=== PATIENT | male | born 1980 | race African-American/Black ===

== ENCOUNTER 2021-07-12 21:13 | Emergency (ER) | payer OTHER ==
--- NOTE | 2021-07-12 22:49 | ED Physician Documentation ---
PD HPI LOWER EXT INJURY - Stated complaint Stated Complaint: LT LEG INJ - Chief complaint Chief Complaint: Ext Problem - History obtained from History obtained from: Patient - History of Present Illness PD HPI LOW EXT INJURY LOCATION: Left, Ankle Type of injury: Fall Where injury occurred: [place] Timing - onset: Enter time (19:00) Timing - details: Abrupt onset Pain level now: 8 Improved by: Rest Worsened by: Moving, Palpating Associated symptoms: No: Weakness, Numbness, Tingling, Swelling, Discolored Similar symptoms before: Has not had sx before Recently seen: Not recently seen - Additional information Additional information: c/o sudden onset left ankle pain at approximately 7 PM tonight when he fell (was pushed) while playing soccer. He was able to bear weight after the fall and continued to play soccer, but the left ankle pain has since rapidly increased in intensity and he is no longer able to bear any weight Review of Systems Skin: denies: Abrasion (s) Musculoskeletal: reports: Joint pain, Joint swelling, Pain with weight bearing. denies: Neck pain, Back pain Neurologic: denies: Focal weakness, Numbness PD PAST MEDICAL HISTORY - Past Medical History Past Medical History: Yes Cardiovascular: Hypertension - Past Surgical History Past Surgical History: No - Present Medications Home Medications: Ambulatory Orders Medication Instructions Recorded Confirmed amLODIPine [Norvasc] 07/12/21 Ibuprofen [Motrin] 600 mg PO Q6H PRN #30 tab 07/13/21 Oxycodone HCl/Acetaminophen 1 - 2 each PO Q6H PRN #14 tablet 07/13/21 [Percocet 5-325 mg Tablet] - Allergies Allergies/Adverse Reactions: Allergies Allergy/AdvReac Type Severity Reaction Status Date / Time No Known Drug Allergies Allergy Verified 07/12/21 21:27 - Social History Does the pt smoke?: No Smoking Status: Never smoker Does the pt drink ETOH?: Yes Does the pt have substance abuse?: No - Immunizations Immunizations are current?: Yes PD ED PE NORMAL - Vitals Vital signs reviewed: Yes - General General: Alert and oriented X 3, Well developed/nourished, Other (appears to be uncomfortable due to pain) - Derm Derm: Normal color, Warm and dry - Extremities Extremities: No deformity - Neuro Neuro: No motor deficit, No sensory deficit PD ED PE EXPANDED - Extremities Extremities: Tenderness, Limited ROM, Swelling, Left ankle, Other (left ankle tenderness, swelling greatest at medial malleolus) Results - Vitals Vitals: Oxygen O2 Source Room air - Rads (name of study) left ankle xrays Radiology: Prelim report reviewed, See rad report Procedures - Splint (location) Lower extremity left Splint applied by: Tech Type of splint: Ankle airsplint Other: Patient tolerated well, No complications, Neurovascular intact, Crutches provided PD MEDICAL DECISION MAKING - ED course Complexity details: reviewed results, re-evaluated patient, considered differential, d/w patient ED course: left ankle pain after falling while playing soccer this evening. No acute findings on plain film xrays, will treat as sprain with air cast splint, crutches, rest, and prescription analgesia I am prescribing a short course of short-acting opioid pain medication for this patient. I have reviewed the patients TEAR DOWN MATCHER and no concerning findings were noted. I have discussed that the opioids are for short term therapy only, and will not be refilled from the ED Departure - Departure Disposition: 01 Home, Self Care Clinical Impression: Ankle sprain Qualifiers: Encounter type: initial encounter Involved ligament of ankle: unspecified ligament Laterality: left Qualified Code(s): S93.402A - Sprain of unspecified ligament of left ankle, initial encounter Condition: Good Instructions: ED Crutch Walking, ED Sprain Ankle Follow-Up: ROSA Valencia [Provider Group] Prescriptions: Ibuprofen [Motrin] 600 mg PO Q6H PRN #30 tab PRN Reason: Pain Oxycodone HCl/Acetaminophen [Percocet 5-325 mg Tablet] 1 - 2 each PO Q6H PRN #14 tablet PRN Reason: pain Comments: There is no evidence of fracture (broken bone(s)) on the xrays. I suspect you have an ankle sprain (which would not show on xrays). Prescriptions for ibuprofen (for mild/moderate pain) and oxycodone/acetaminophen (for moderate/severe pain) have been electronically submitted to the [facility] pharmacy in [place]. I am prescribing a short course of narcotic pain medication for you. These are potentially dangerous and addictive medications that should be used carefully. These medications may constipate you. Take an [id number]-arn-ufuvsiy stool softener (docusate) twice daily with plenty of water while taking these medications. If you go 24 hours without a bowel movement, take [id number] miralax, per package instructions. Do not drink or drive while taking these medications. If you received narcotic or sedating medications while in the emergency department, do not drive for 24 hours. Store this medication in a safe, secure place and out of reach of children. It is a violation of federal law to give or sell this medication to another person or to use in a manner other than prescribed. The ED will not refill narcotic prescriptions, including prescriptions lost or stolen. To dispose of unwanted medications: 1. [facility] at [address] in [place] has a medication drop box. They accept prescription medications (in pill form) Friday through Friday 9:00 a.m. to 5:00 p.m. 2. [facility] [employer] accepts prescription medications (in pill form only) for disposal year round. Call for more information. 3. Contact the [facility] for the next [facility] sponsored prescription drug collection event. , [phone], or [phone]; Forms: Activity restrictions Discharge Date/Time: 07/13/21 00:12
[2021-07-12] MEDS: oxyCODONE 5 MG TABLET PO STA (23:00)
--- NOTE | 2021-07-12 23:32 | XRAY Report ---
PROCEDURE: Ankle 3 View LT INDICATIONS: injury, pain, tenderness TECHNIQUE: 3 views of the ankle were acquired. COMPARISON: None. FINDINGS: Bones: No fractures or dislocations. Ankle mortise is normally aligned. No suspicious bony lesions . Soft tissues: No tibiotalar joint effusion. Achilles tendon appears normal. IMPRESSION: No acute osseous abnormality. Reviewed by: Kashmir Ware MD on 07/12/2021 11:33 PM PDT Approved by: Kashmir Ware MD on 07/12/2021 11:33 PM PDT Station ID: [id number]
--- NOTE | 2021-07-12 23:33 | XRAY Report ---
PROCEDURE: Foot 3 View LT INDICATIONS: injury, pain, tenderness TECHNIQUE: 3 views of the foot were acquired. COMPARISON: Same day left ankle radiographs. FINDINGS: Bones: No fractures or dislocations. No suspicious bony lesions. Soft tissues: No tibiotalar joint effusion. Achilles tendon appears normal. IMPRESSION: No acute osseous abnormality. Reviewed by: Kashmir Ware MD on 07/12/2021 11:35 PM PDT Approved by: Kashmir Ware MD on 07/12/2021 11:35 PM PDT Station ID: [id number]
[2021-07-12 23:47] VITALS: BP 136/77
== END 2021-07-13 00:12 | disposition home or self-care (01) ==
LOC: ED 21:13
DX: S93.402A Sprain of unspecified ligament of left ankle, initial encounter (principal); W03.XXXA Other fall on same level due to collision with another person, initial encounter; Y93.66 Activity, soccer; Y92.830 Public park as the place of occurrence of the external cause
CPT/HCPCS: 73610; 73630; 99283; A9270